=== PATIENT | female | born 1930 | race Caucasian/White ===

== ENCOUNTER 2016-08-18 14:23 | Emergency (ER) | payer MEDICARE, MEDICAID ==
[2016-08-18 16:11] VITALS: BP 160/46
--- NOTE | 2016-08-18 16:24 | EDM.PDOC ---
ED HPI HEAD INJURY - General Chief Complaint: Head Injury Stated Complaint: FELL AND HIT HEAD Time Seen by Provider: 08/18/16 14:57 Source of Information: Reports: Patient, [facility] History Limitations: Reports: No limitations - History of Present Illness INITIAL COMMENTS - FREE TEXT/NARRATIVE: PER PT AND [facility] RECORDS, THERE WAS A CONCERN FOR WEAKNESS AND A FALL EARLIER TODAY. MAY HAVE STRUCK HEAD. ACTING APPROPRIATE AT BASELINE NOW. PT DENIES CP, N/V, SOB, STARK, NECK PAIN, OR ANY OTHER PAIN Symptom Onset Date: 08/18/16 Timing/Duration: Reports: Other (UNSURE) Place of Occurrence: other ([facility]) Improves with: none Worsens with: none Associated Symptoms: Reports: no other symptoms. Denies: headache, nausea/ vomiting, loss of consciousness, dizziness - Related Data Allergies/ADRs: Allergies Allergy/AdvReac Type Severity Reaction Status Date / Time No Known Drug Allergies Allergy Cannot Verified 06/25/14 19:45 Remember Home Meds: Home Meds Acetaminophen [Pain Relief] 650 mg PO BID 04/26/14 [History] Donepezil [Aricept] 10 mg PO BEDTIME 04/26/14 [History] Fluticasone/Salmeterol [Advair 100-50] 1 puff INH BID 04/26/14 [History] Furosemide [Lasix] 40 mg PO BID 04/26/14 [History] Multivitamin with Minerals [Multiple Vitamin] 1 tab PO DAILY 04/26/14 [History] Nitroglycerin [Nitrostat] 0.3 mg SL DAILY PRN 04/26/14 [History] Potassium Chloride 20 meq PO DAILY 04/26/14 [History] Warfarin [Coumadin] 2.5 mg PO DAILY 04/26/14 [History] Warfarin [Coumadin] 5 mg PO DAILY 04/26/14 [History] Iron Aspgly&PS/B12/C/Ca/FA/Suc [Niferex-150 Forte] 150 mg PO DAILY 08/18/16 [ History] Lisinopril 5 mg PO DAILY 08/18/16 [History] Lisinopril 10 mg PO DAILY 08/18/16 [History] Metolazone 2.5 mg PO DAILY 08/18/16 [History] Sertraline HCl [Zoloft] 75 mg PO DAILY 08/18/16 [History] Past Medical History HEENT History: Reports: Impaired vision Cardiovascular History: Reports: Afib, CAD, High cholesterol, Hypertension, [place] Gastrointestinal History: Reports: GERD, GI bleed, Other (see below) Other Gastrointestinal History: angiodysplasia of colon with hemorrhage 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: Musculoskeletal History: Reports: Arthritis, Osteoarthritis Psychiatric History: Reports: Dementia Hematologic History: Reports: Iron deficiency - Past Surgical History HEENT Surgical History: Reports: None Cardiovascular Surgical History: Reports: Other (see below) Other Cardiovascular Surgeries/Procedures: Has scar on chest unable to tell me what surgery she had done GI Surgical History: Reports: Colonoscopy Musculoskeletal Surgical History: Reports: None Social & Family History - Family History Family Medical History: Noncontributory - Tobacco Use Smoking Status *Q: Never Smoker Second Hand Smoke Exposure: No - Caffeine Use Caffeine Use: Reports: Coffee, Tea - Alcohol Use Days Per Week of Alcohol Use: 0 - Recreational Drug Use Recreational Drug Use: No - Living Situation & Occupation Living situation: Reports: single Occupation: retired ED ROS GENERAL - Review of Systems Review Of Systems: ROS reveals no pertinent complaints other than HPI. Constitutional: Reports: no symptoms HEENT: Reports: No symptoms Respiratory: Reports: No Symptoms Cardiovascular: Reports: No symptoms Endocrine: Reports: no symptoms GI/Abdominal: Reports: No symptoms : Reports: no symptoms Musculoskeletal: Reports: no symptoms Skin: Reports: no symptoms Neurological: Reports: No Symptoms Psychiatric: Reports: No symptoms Hematologic/Lymphatic: Reports: no symptoms Immunologic: Reports: no symptoms ED EXAM, HEAD INJURY - Physical Exam Exam: See Below Exam Limited By: No limitations General Appearance: alert, WD/WN, no apparent distress Head: atraumatic, normocephalic, other (PT HAS RESOLVING ECCHYMOSIS OF LEFT MAXILLA AND HEALED WOUND ABOVE LEFT EYE. NO NEW ECCHYMOSIS, CONTUSION, ERYTHEMA , HEMATOMA, OR DEPRESSION NOTED ANYWHERE ON SCALP OR FACE) Eyes: bilateral eye: normal inspection Ears: normal external exam, normal canal Nose: normal inspection, normal mucousa, no blood Throat/Mouth: Normal inspection, Normal lips, Normal oropharynx, Normal voice, No airway compromise Neck: non-tender, full range of motion, normal alignment, normal inspection Respiratory: no respiratory distress, lungs clear, chest non-tender Cardiovascular: regular rate, rhythm, no murmur GI/Abdominal Exam (Abbreviated): normal bowel sounds, soft, non tender Back Exam: normal inspection Extremities: no evidence of injury, non-tender Neurologic: no motor/sensory deficits, oriented x 3 Skin: Normal color, Warm/dry, Ecchymosis (LEFT FACE) - Campbell Coma Score Campbell Total: 15 EKG INTERPRETATION EKG Date: 08/18/16 Time: 15:35 Rate (beats/min): 42 EKG Interpretation Comments: JUNCTIONAL BRADYCARDIA / NONSPECIFIC ST CHANGES Course - Vital Signs Last Recorded V/S: Last Vital Signs Temp 97.9 F 08/18/16 14:40 Pulse 54 L 08/18/16 16:09 Resp 18 08/18/16 16:09 BP 160/46 H 08/18/16 16:09 Pulse Ox 93 L 08/18/16 16:09 - Orders/Labs/Meds Orders: Active Orders 24 hr Category Date Time Status EKG Documentation Completion [RC] ASDIRECTED Care 08/18/16 15:05 Ordered Chest 1V Frontal [CR] Stat Exams 08/18/16 15:04 Ordered EKG 12 Lead [EK] Stat Ther 08/18/16 15:04 Ordered Labs: Laboratory Tests 08/18/16 08/18/16 08/18/16 Range/Units 15:10 15:10 15:10 WBC 10.7 H (5.0-10.0) 10^3/uL RBC 3.76 L (3.80-5.50) 10^6/uL Hgb 11.9 L (12.0-16.0) g/dL Hct 34.9 L (37.0-47.0) % MCV 92.9 H (82.0-92.0) fL MCH 31.6 H (27.0-31.0) pg MCHC 34.0 (32.0-36.0) g/dL RDW 13.8 (11.5-14.5) % Plt Count 300 (150-300) 10^3/uL MPV 8.6 (7.4-10.4) fL Neut % (Auto) 83.9 H (50.0-70.0) % Lymph % (Auto) 8.2 L (20.0-40.0) % [place] % (Auto) 6.8 (2.0-8.0) % Eos % (Auto) 0.8 L (1.0-3.0) % Baso % (Auto) 0.3 (0.0-1.0) % Neut # 9.0 H (2.5-7.0) 10^3/uL Lymph # 0.9 L (1.0-4.0) 10^3/uL [place] # 0.7 (0.1-0.8) 10^3/uL Eos # 0.1 (0.1-0.3) 10^3/uL Baso # 0.0 (0.0-0.1) 10^3/uL PT 16.9 H (8.9-11.4) SEC INR 1.6 H (0.9-1.1) Sodium 140 (136-145) mmol/L Potassium 4.6 (3.3-5.3) mmol/L Chloride 98 (98-115) mmol/L Carbon Dioxide 34.8 H (21.0-32.0) mmol/L BUN 31 H (6-25) mg/dL Creatinine 1.20 H (0.51-1.17) mg/dL Est Cr Clr Drug Dosing 24.17 mL/min Estimated GFR (MDRD) 43 mL/min Glucose 130 H (70-110) mg/dL Calcium 9.2 (8.7-10.3) mg/dL Total Bilirubin 0.3 (0.2-1.0) mg/dL AST 35 (15-37) U/L ALT 24 (12-78) U/L Alkaline Phosphatase 94 (46-116) IU/L Total Protein 7.4 (6.4-8.2) g/dL Albumin 3.16 (3.00-4.80) g/dL Specimen Type Urine Color (YELLOW) Urine Appearance (CLEAR) Urine pH (5.0-9.0) Ur Specific [place] (1.005-1.030) Urine Protein (NEGATIVE) mg/dL Urine Glucose (UA) (NEGATIVE) mg/dL Urine Ketones (NEGATIVE) mg/dL Urine Occult Blood (NEGATIVE) Urine Nitrite (NEGATIVE) Urine Bilirubin (NEGATIVE) Urine Urobilinogen (0.2-1.0) E.U./dL Ur Leukocyte Esterase (NEGATIVE) Urine RBC /HPF Urine WBC /HPF Ur Epithelial Cells /LPF Urine Bacteria (NONE TO FEW) /HPF Urine Mucus (NEGATIVE) /LPF 08/18/16 Range/Units 15:30 WBC (5.0-10.0) 10^3/uL RBC (3.80-5.50) 10^6/uL Hgb (12.0-16.0) g/dL Hct (37.0-47.0) % MCV (82.0-92.0) fL MCH (27.0-31.0) pg MCHC (32.0-36.0) g/dL RDW (11.5-14.5) % Plt Count (150-300) 10^3/uL MPV (7.4-10.4) fL Neut % (Auto) (50.0-70.0) % Lymph % (Auto) (20.0-40.0) % [place] % (Auto) (2.0-8.0) % Eos % (Auto) (1.0-3.0) % Baso % (Auto) (0.0-1.0) % Neut # (2.5-7.0) 10^3/uL Lymph # (1.0-4.0) 10^3/uL [place] # (0.1-0.8) 10^3/uL Eos # (0.1-0.3) 10^3/uL Baso # (0.0-0.1) 10^3/uL PT (8.9-11.4) SEC INR (0.9-1.1) Sodium (136-145) mmol/L Potassium (3.3-5.3) mmol/L Chloride (98-115) mmol/L Carbon Dioxide (21.0-32.0) mmol/L BUN (6-25) mg/dL Creatinine (0.51-1.17) mg/dL Est Cr Clr Drug Dosing mL/min Estimated GFR (MDRD) mL/min Glucose (70-110) mg/dL Calcium (8.7-10.3) mg/dL Total Bilirubin (0.2-1.0) mg/dL AST (15-37) U/L ALT (12-78) U/L Alkaline Phosphatase (46-116) IU/L Total Protein (6.4-8.2) g/dL Albumin (3.00-4.80) g/dL Specimen Type Urincath Urine Color Yellow (YELLOW) Urine Appearance Slightly cloudy H (CLEAR) Urine pH 5.5 (5.0-9.0) Ur Specific [place] 1.010 (1.005-1.030) Urine Protein Negative (NEGATIVE) mg/dL Urine Glucose (UA) Negative (NEGATIVE) mg/dL Urine Ketones Negative (NEGATIVE) mg/dL Urine Occult Blood Negative (NEGATIVE) Urine Nitrite Negative (NEGATIVE) Urine Bilirubin Negative (NEGATIVE) Urine Urobilinogen 0.2 (0.2-1.0) E.U./dL Ur Leukocyte Esterase Trace H (NEGATIVE) Urine RBC 0-5 /HPF Urine WBC 0-5 /HPF Ur Epithelial Cells Few /LPF Urine Bacteria Rare (NONE TO FEW) /HPF Urine Mucus Rare H (NEGATIVE) /LPF - Radiology Interpretation Free Text/Narrative:: CXR NEGATIVE FOR ACUTE PROCESS - Re-Assessments/Exams Free Text/Narrative Re-Assessment/Exam: 08/18/16 16:35 PT AFEBRILE, NONTOXIC APPEARING, ALERT, ACTING APPROPRIATE, IN NO DISTRESS. WILL D/C TO NURSING FACILITY Departure - Departure Time of Disposition: 16:37 Disposition: DC/Tfer to Medicaid Nur Fac 64 Condition: good Clinical Impression: Weakness Instructions: Weakness, [id number] Forms: ED Department Discharge - My Orders Last 24 Hours: My Active Orders 08/18/16 15:04 Chest 1V Frontal [CR] Stat EKG 12 Lead [EK] Stat 08/18/16 15:05 EKG Documentation Completion [RC] ASDIRECTED - Assessment/Plan Last 24 Hours: My Active Orders 08/18/16 15:04 Chest 1V Frontal [CR] Stat EKG 12 Lead [EK] Stat 08/18/16 15:05 EKG Documentation Completion [RC] ASDIRECTED Assessment:: WEAKNESS Plan: RETURN TO NURSING FACILITY / F-U WITH PCP IN 2 DAYS
== END 2016-08-18 17:15 ==
LOC: KA.ED 14:23
DX: R53.1 Weakness (principal); I48.91 Unspecified atrial fibrillation; I25.10 Atherosclerotic heart disease of native coronary artery without angina pectoris; E78.00 Pure hypercholesterolemia, unspecified; I10 Essential (primary) hypertension; M19.90 Unspecified osteoarthritis, unspecified site; I25.2 Old myocardial infarction; K21.9 Gastro-esophageal reflux disease without esophagitis; Z79.01 Long term (current) use of anticoagulants; Z79.899 Other long term (current) drug therapy
CPT/HCPCS: 36415; 71010; 80053; 81001; 85025; 85610; 93005; 99284; 99285

== ENCOUNTER 2017-12-26 13:33 | Emergency (ER) | payer MEDICARE, MEDICAID ==
--- NOTE | 2017-12-26 13:47 | EDM.PDOC ---
ED HPI GENERAL MEDICAL PROBLEM - General Chief Complaint: Gastrointestinal Problem Stated Complaint: BLEEDING FROM RECTUM Time Seen by Provider: 12/26/17 13:47 Source of Information: Reports: Patient, Family, Snf Records History Limitations: Reports: No Limitations - History of Present Illness INITIAL COMMENTS - FREE TEXT/NARRATIVE: Has not been feeling well today. He states she is noticed worsening since when she visited last December. Cristina states today "I feel like shit". Although she's does state she feels slightly better after arriving here. During dry heaving due to intermittent nausea experienced bowel movement. There was noted bright red streaking in a black stool noting that she is taking iron and has history of blood loss that has been unconfirmed due to limited testing secondary health and age. No noted irritants dietary or activity barcenas, no issues reported hemorrhoid, rectal pain or burning, severe Constipation. Underwent transfusion in the past month for anemia secondary bleed. Per record 2 years of chronic blood loss. Onset: Today, Sudden Onset Date: 12/26/17 Onset Time: 12:00 Duration: Minutes: Location: Reports: Abdomen Quality: Reports: Other (Denies any pain or shortness of breath) Severity: Mild Improves with: Reports: None Worsens with: Reports: None Context: Reports: Activity Associated Symptoms: Reports: Nausea/Vomiting - Related Data Allergies Allergy/AdvReac Type Severity Reaction Status Date / Time No Known Drug Allergies Allergy Cannot Verified 12/26/17 14:18 Remember Home Meds: Home Meds Acetaminophen [Pain Relief] 650 mg PO BID PRN 04/26/14 [History] Donepezil [Aricept] 10 mg PO BEDTIME 04/26/14 [History] Fluticasone/Salmeterol [Advair 100-50] 1 puff INH BID 04/26/14 [History] Furosemide [Lasix] 20 mg PO DAILY 04/26/14 [History] Multivitamin with Minerals [Multiple Vitamin] 1 tab PO DAILY 04/26/14 [History] Nitroglycerin [Nitrostat] 0.3 mg SL DAILY PRN 04/26/14 [History] Iron Aspgly&PS/B12/C/Ca/FA/Suc [Niferex-150 Forte] 150 mg PO DAILY 08/18/16 [ History] Lisinopril 40 mg PO DAILY 08/18/16 [History] Sertraline HCl [Zoloft] 75 mg PO DAILY 08/18/16 [History] metOLazone [Metolazone] 2.5 mg PO DAILY 08/18/16 [History] Aspirin 81 mg PO DAILY 12/26/17 [History] Calcium Carbonate/Vitamin D3 [Calcium 600 + D3 Softgel] 1 each PO BID 12/26/17 [ History] Cholecalciferol (Vitamin D3) [Vitamin D3] 1,000 units PO DAILY 12/26/17 [History ] Loperamide HCl [Imodium A-D] 2 mg PO ASDIRECTED PRN 12/26/17 [History] Magnesium Hydroxide [Milk of Magnesia] 30 ml PO DAILY PRN 12/26/17 [History] Potassium Chloride [Klor-Con 10] 10 meq PO DAILY 12/26/17 [History] hydrALAZINE HCl [Hydralazine HCl] 25 gm PO Q8H PRN 12/26/17 [History] Past Medical History HEENT History: Reports: Hard of Hearing, Impaired Vision Cardiovascular History: Reports: Afib, CAD, High Cholesterol, Hypertension, [place] Gastrointestinal History: Reports: GERD, GI Bleed, Other (See Below) Other Gastrointestinal History: angiodysplasia of colon with hemorrhage 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: Musculoskeletal History: Reports: Arthritis, Osteoarthritis Psychiatric History: Reports: Dementia Hematologic History: Reports: Anemia, Blood Transfusion(s), Iron Deficiency - Past Surgical History Cardiovascular Surgical History: Reports: Other (See Below) Musculoskeletal Surgical History: Reports: None Social & Family History - Family History Family Medical History: Noncontributory - Caffeine Use Caffeine Use: Reports: Coffee, Tea - Living Situation & Occupation Living situation: Reports: Single 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 Denies: Shortness of Breath Cardiovascular: Reports: No Symptoms. Denies: Chest Pain, Dyspnea on Exertion Endocrine: Reports: No Symptoms GI/Abdominal: Reports: Melena (Red blood tinge streak), Nausea : Reports: No Symptoms Musculoskeletal: Reports: No Symptoms, Shoulder Pain (Right generative in nature ) Skin: Reports: Bruising (Right cheek, shoulder arm) Neurological: Reports: Pre-Existing Deficit Psychiatric: Reports: No Symptoms Hematologic/Lymphatic: Reports: Easy Bruising Free Text/Narrative/Comment: Bruising right-sided head and face from fall 1 month ago ED EXAM, GENERAL - Physical Exam Exam: See Below Free Text/Narrative:: Was transferred here today secondary of her bright red streaked on her underlying black tarry stool. Had been experiencing nausea with no emesis. As noted demise in overall activity since last week. Is more laid back sleepy than previously. No recent occurrences, change in diet, blood thinner Coumadin had been stopped after the fall 1 week ago with this past transfusion. Exam Limited By: No Limitations General Appearance: Alert (Appropriate when awake seems to doze easily), WD/WN, No Apparent Distress (Mild nausea times) Eye Exam: Bilateral Eye: PERRL Ears: Normal External Exam, Normal Canal Nose: Normal Inspection, Normal Mucosa, No Blood Throat/Mouth: Normal Inspection, Normal Oropharynx, Normal Voice, No Airway Compromise Head: Other (Right-sided ecchymosis) Neck: Normal Inspection, Non-Tender, Full Range of Motion Respiratory/Chest: No Respiratory Distress, Lungs Clear (Diminished basis), Decreased Breath Sounds Cardiovascular: Normal Peripheral Pulses. No: No Edema (Compression stockings in place) Peripheral Pulses: 2+: Radial (L), Radial (R) GI/Abdominal: Normal Bowel Sounds, Soft, Non-Tender, No Distention (Female) Exam: Deferred Rectal (Female) Exam: Normal Exam, Normal Rectal Tone, Black Stool, Heme + Stool. No: Hemorrhoids, Mass Back Exam: Normal Inspection Extremities: Pedal Edema Neurological: Alert, Oriented, CN II-XII Intact, Normal Cognition Psychiatric: Normal Affect Skin Exam: Warm, Dry, Intact, Pallor Lymphatic: No Adenopathy Course - Vital Signs Last Recorded V/S: Last Vital Signs Temp 36.7 C 12/26/17 13:56 Pulse 71 12/26/17 13:56 Resp 23 H 12/26/17 13:56 BP 154/45 H 12/26/17 13:56 Pulse Ox 94 L 12/26/17 13:56 - Orders/Labs/Meds Labs: Laboratory Tests 12/26/17 12/26/17 12/26/17 Range/Units 14:00 14:00 14:00 WBC 5.6 (5.0-10.0) 10^3/uL RBC 2.89 L (3.80-5.50) 10^6/uL Hgb 7.2 L (12.0-16.0) g/dL Hct 23.2 L (37.0-47.0) % MCV 80.1 L D (82.0-92.0) fL MCH 24.9 L (27.0-31.0) pg MCHC 31.1 L (32.0-36.0) g/dL RDW 19.2 H (11.5-14.5) % Plt Count 352 H (150-300) 10^3/uL MPV 7.4 (7.4-10.4) fL Neut % (Auto) 69.8 (50.0-70.0) % Lymph % (Auto) 13.3 L (20.0-40.0) % [place] % (Auto) 12.1 H (2.0-8.0) % Eos % (Auto) 0.3 L (1.0-3.0) % Baso % (Auto) 4.5 H (0.0-1.0) % Neut # (Auto) 3.9 (2.5-7.0) 10^3/uL Lymph # (Auto) 0.7 L (1.0-4.0) 10^3/uL [place] # (Auto) 0.7 (0.1-0.8) 10^3/uL Eos # (Auto) 0.0 L (0.1-0.3) 10^3/uL Baso # (Auto) 0.3 H (0.0-0.1) 10^3/uL PT 12.6 H (8.9-11.4) SEC INR 1.3 H (0.9-1.1) APTT 25.9 (20.8-31.2) SEC Sodium 140 (136-145) mmol/L Potassium 4.6 (3.3-5.3) mmol/L Chloride 100 (98-115) mmol/L Carbon Dioxide 31.6 (21.0-32.0) mmol/L Anion Gap 13.0 (5-15) mmol/L BUN 34 H (6-25) mg/dL Creatinine 0.76 (0.51-1.17) mg/dL Est Cr Clr Drug Dosing 43.14 mL/min Estimated GFR (MDRD) > 60 mL/min Glucose 112 mg/dL Calcium 8.5 L (8.7-10.3) mg/dL Total Bilirubin 0.6 (0.2-1.0) mg/dL AST 45 H (15-37) U/L ALT 28 (12-78) U/L Alkaline Phosphatase 74 (46-116) IU/L Total Protein 6.3 L (6.4-8.2) g/dL Albumin 2.30 L (3.00-4.80) g/dL Meds: Medications Discontinued Medications Generic Name Dose Route Start Last Admin Trade Name Freq PRN Reason Stop Dose Admin Ondansetron HCl 4 mg 12/26/17 14:32 12/26/17 14:53 Zofran IVPUSH 12/26/17 14:33 4 mg ONETIME ONE Administration Departure - Departure Time of Disposition: 15:18 Disposition: DC/Tfer to [facility] 63 Condition: Poor Clinical Impression: Bleeding, Edema, Hypoalbuminemia, Nausea alone, Chronic anemia - Discharge Information *PRESCRIPTION DRUG MONITORING PROGRAM REVIEWED*: No *COPY OF PRESCRIPTION DRUG MONITORING REPORT IN PATIENT HADLEY: No Referrals: Sunni Feliciano MD [Primary Care Provider] - Forms: ED Department Discharge Additional Instructions: Discussed in detail with family as well as [facility] from [facility]. Consideration for return to the facility with comfort cares to be initiated with a discussion on family meeting and implementation potential for hospice. Due to chronicity of bleed that is not then identified and overall health status that would restrict testing abilities and also likely the treatment ability per se surgical intervention. No further intervention will be conducted at this time. Plan for return facility with comfort cares, diet and activity as tolerated. Care Plan Goals: Discussed in detail with family as well as [facility] from [facility]. Consideration for return to the facility with comfort cares to be initiated with a discussion on family meeting and implementation potential for hospice. Due to chronicity of bleed that is not then identified and overall health status that would restrict testing abilities and also likely the treatment ability per se surgical intervention. No further intervention will be conducted at this time. Plan for return facility with comfort cares, diet and activity as tolerated. This note may serve as H&P for hospice care if needed. - Problem List & Annotations (1) Ecchymosis SNOMED Code(s): 667427787 Code(s): R58 - HEMORRHAGE, NOT ELSEWHERE CLASSIFIED Status: Chronic Priority: High Current Visit: Yes Annotation/Comment:: Chronic blood loss anemia. Recent transfusion has not held stability (2) Nausea alone SNOMED Code(s): 990497890 Code(s): R11.0 - NAUSEA Status: Acute Priority: Medium Current Visit: Yes (3) Hypoalbuminemia SNOMED Code(s): 764269978 Code(s): E88.09 - OTH DISORDERS OF PLASMA-PROTEIN METABOLISM, NEC Status: Acute Current Visit: Yes (4) Edema SNOMED Code(s): 998995912, 373383083 Code(s): R60.9 - EDEMA, UNSPECIFIED Status: Acute Current Visit: Yes Qualifiers: Edema type: localized Qualified Code(s): R60.0 - Localized edema - Problem List Review Problem List Initiated/Reviewed/Updated: Yes - Assessment/Plan Plan: Discussed in detail with family as well as Aurora from [facility]. Consideration for return to the facility with comfort cares to be initiated with a discussion on family meeting and implementation potential for hospice. Due to chronicity of bleed that is not then identified and overall health status that would restrict testing abilities and also likely the treatment ability per se surgical intervention. No further intervention will be conducted at this time. As patient has previous DNR status and daughter acknowledges nothing aggressive would be wanted an comfort would be the focus of care we then plan for return facility with comfort cares, diet and activity as tolerated.
[2017-12-26] MEDS ORDERED: Ondansetron 4 MG/2 ML SDV IVPUSH ONE (14:32)
[2017-12-26 14:40] LABS: CHLORIDE,CL 100 mmol/L (98-115); SODIUM,NA 140 mmol/L (136-145)
[2017-12-26 16:11] VITALS: BP 158/55
== END 2017-12-26 15:40 ==
LOC: KA.ED 13:33
DX: S00.93XA Contusion of unspecified part of head, initial encounter (principal); I48.91 Unspecified atrial fibrillation; E78.00 Pure hypercholesterolemia, unspecified; I10 Essential (primary) hypertension; I25.2 Old myocardial infarction; K21.9 Gastro-esophageal reflux disease without esophagitis; R11.0 Nausea; R60.9 Edema, unspecified; D50.9 Iron deficiency anemia, unspecified; Z79.899 Other long term (current) drug therapy; Z79.82 Long term (current) use of aspirin; X58.XXXA Exposure to other specified factors, initial encounter
CPT/HCPCS: 36415; 80053; 82272; 85025; 85610; 85730; 96374; 99284; J2405